=== PATIENT | female | born 1960 | race Caucasian/White ===

== ENCOUNTER → 2018-06-03 | Outpatient (REF) | payer OTHER ==
[2018-06-03 12:42] LABS: BACTERIA, URINE AUTO NEGATIVE (NEGATIVE); RBC, URINE AUTO 0 /HPF (0-3); SQUAMOUS EPITHELIAL CELL UR AU 0 /HPF (0-6); WBC, URINE AUTO 0 /HPF (0-3)
== END ==
LOC: M LAB REF 12:02
DX: R30.0 Dysuria (principal)

== ENCOUNTER → 2021-04-16 | Outpatient (REF) | payer OTHER ==
[~2021-04-16] MED LIST: ASPI81TA26 PO; CALCTAB28 PO; CLAR10CA3 PO; FISH100049 PO; GLUC500C5 PO; META0.52 PO; MULTCAP PO
== END ==
LOC: M WUC 18:43
PROVIDERS: ATTEND Physician Assistant Medical
DX: R30.0 Dysuria (principal)